=== PATIENT | male | born 1985 | race Caucasian/White ===

== ENCOUNTER 2020-01-09 21:58 | Observation (INO) | payer BC, OTHER ==
[2020-01-09 22:41] LABS: #Basophils 0.1 thou/uL (0.0-0.2); #Eosinphils 0.2 thou/uL (0.0-0.7); #Lymphocytes 2.8 thou/uL (1.20-3.40); #Monocytes 0.6 thou/uL (0.11-0.59); #Neutrophils 3.5 thou/uL (1.40-6.50); %Basophils 1.5 % (0.0-1.0); %Eosinophils 2.4 % (0.0-10.0); %Lymphocytes 38.7 % (21.0-51.0); %Monocytes 8.5 % (0.0-10.0); %Neutrophils 48.9 % (42.0-75.0); Mean Corpuscular HGB CONC 34.6 g/dL (32.0-36.0); Mean Corpuscular Hemoglobin 31.2 pg (27.0-31.0); Mean Corpuscular Volume 90.1 fL (78.0-98.0); Mean Platelet Volume 8.3 fL (7.4-10.4); Platelet Count 235 thou/uL (130-400); RBC Distribution Width 11.7 % (11.5-14.5); Red Blood Cell (RBC) Count 5.13 mill/uL (4.70-6.10); White Blood Cell (WBC) Count 7.2 thou/uL (4.8-10.8)
[2020-01-09 22:45] LABS: Bilirubin Negative (Negative); Blood, Urine Negative (Negative); Clarity Clear (Clear); Glucose, Urine (Dipstick) Normal (Negative); Ketone, Urine Negative (Negative); Leukocyte Negative Leu/uL (Negative); Nitrite Negative (Negative); Protein, Urine (Dipstick) Negative (Neg-Trace); Specific Gravity, Urine 1.002 (1.002-1.036); Urobilinogen Normal mg/dL (Less than 2)
[2020-01-09 22:47] LABS: INR-International Normal Ratio 0.8; PTT 24.1 sec (22.9-36.1); Prothrombin Time 11.8 sec (12.0-14.7)
[2020-01-09] MEDS ORDERED: Crotalidae Polyvlnt Antivenin 6 GM in Sodium Chloride 0.9% 250 ML 250 ML IVPB SCH (23:00)
[2020-01-10] MEDS ORDERED: HYDROcodone/Acetaminophen 5/325 mg Tablet PO PRN (00:09)
[2020-01-10] MEDS ORDERED: Acetaminophen 325 MG TAB PO PRN (00:09)
[2020-01-10] MEDS ORDERED: Ondansetron PF 4 MG/2 ML Vial IVP PRN (00:09)
[2020-01-10] MEDS ORDERED: Morphine 2 MG/ML VIAL SLOW IVP PRN (00:09)
[2020-01-10] MEDS ORDERED: hydrALAZINE 20 MG/ML VIAL SLOW IVP PRN (00:09)
--- NOTE | 2020-01-10 00:13 | PDOC.HHP ---
Hospitalist HPI - History of Present Illness Snake bite History of Present Illness: Patient is a 34 year old male with no PMH who presents to ED for snake bite on hand between 8 and 9 pm tonight, patient was sitting in chair and unprovoked was bitten on L middle finger proximal digit, the whole hand is swollen and cannot make a fist, denies bleeding or pain outside of the hand, it is swollen to the wrist, patient currently receiving crofab, coags normal so far fibrinogen pending. patient admitted for observation and treatment. Hospitalist ROS - Review of Systems Constitutional: denies: fever, chills, sweats, weakness, malaise, other Eyes: denies: pain, vision change, conjunctivae inflammation, eyelid inflamm ation, redness, other ENT: denies: ear pain, ear discharge, nose pain, nose discharge, nose congestion, mouth pain, mouth swelling, throat pain, throat swelling, other Respiratory: denies: cough, dry, shortness of breath, hemoptysis, SOB with excertion, pleuritic pain, sputum, wheezing, other Cardiovascular: denies: chest pain, palpitations, orthopnea, paroxysmal noc. dyspnea, edema, light headedness, other Gastrointestinal: denies: nausea, vomiting, abdominal pain, diarrhea, constipation, melena, hematochezia, other Genitourinary: denies: dysuria, frequency, incontinence, hematuria, retention, other Musculoskeletal: reports: hand pain. denies: neck pain, shoulder pain, arm pain, back pain, leg pain, foot pain, other Skin: denies: rash, lesions, neetu, bruising, other Neurological: denies: weakness, numbness, incoordination, change in speech, confusion, seizures, other All other systems reviewed; all pertinent +/- noted in HPI/Subj - Medication Medications: none Hospitalist History - Past Medical History Other Medical History: no significant pmh - Past Surgical History Past Surgical History: reports: no pertinent history - Family History Family History: reports: no pertinent history - Social History Smoking Status: Never smoker Alcohol: reports: Rare Drugs: reports: none - Exam General Appearance: NAD, awake alert Eye: PERRL, anicteric sclera ENT: normocephalic atraumatic, no oropharyngeal lesions, moist mucosa Neck: supple, symmetric, no JVD, no thyromegaly, no lymphadenopathy, no carotid bruit Heart: RRR, no murmur, no gallops, no rubs, normal peripheral pulses Respiratory: CTAB, no wheezes, no rales, no ronchi, normal chest expansion, no tachypnea, normal percussion Gastrointestinal: soft, non-tender, non-distended, normal bowel sounds, no palpable masses, no hepatomegaly, no splenomegaly, no bruit Extremities: no cyanosis, no clubbing, no edema Extremities - other findings: small puncture wound L 3rd finger MCP, edema whole L hand marked Skin: normal turgor, no lesions, no rashes Neurological: cranial nerve grossly intact, normal sensation to touch, no weakness, no focal deficits, no new deficit Musculoskeletal: normal tone, normal strength, no muscle wasting Psychiatric: normal affect, normal behavior, A&O x 3 Hospitalist Results - Labs Result Diagrams: 01/09/20 22: Lab results: WBC 7.2 thou/uL (4.8-10.8) 01/09/20 22:29 Hgb 16.0 g/dL (14.0-18.0) 01/09/20 22:29 Hct 46.3 % (42.0-52.0) 01/09/20 22: MCV 90.1 fL (78.0-98.0) 01/09/20 22:29 Plt Count 235 thou/uL (130-400) 01/09/20 22:29 Neutrophils % 48.9 % (42.0-75.0) 01/09/20 22: Creatine Kinase 176 U/L (30-200) 01/09/20 22:29 Urine Ketones Negative mg/dL (Negative) 01/09/20 22:29 Urine Blood Negative (Negative) 01/09/20 22: Urine Nitrite Negative (Negative) 01/09/20 22:29 Ur Leukocyte Esterase Negative Yue/uL (Negative) 01/09/20 22:29 Additional comment: VITAL SIGNS SunJan 09, 2020 23:58 [facility] [place] BP: 123/83 Pulse: 65 Resp: 21 Temp: 98.7 (Oral) Pain: 5 O2 sat: 98 on (Room Air) Time: 01/09/2020 23:58. labs, ed documentation reviewed Hospitalist H&P A/P - Plan Plan: Patient is a 34 year old male with no PMH who presents to ED for snake bite on hand between 8 and 9 pm tonight. # copperhead bite - patient confirmed was a copperhead, minor copperhead bite but given sensitive location on hand will need observation and hand surgery evaluation - admit to floor for obs - repeat cbc, cmp, coags in AM - consult orthopedic/hand surgery - recieved one unit crofab so far dvt ppx - not indicated, concern for pending coagulopathy and patient walking just fine
[2020-01-10] MEDS ORDERED: Electrolyte Replacement Protoc 1 EACH EACH FS PRN (00:15)
[2020-01-10 01:12] LABS: Platelet Count 248 thou/uL (130-400)
[2020-01-10 01:22] LABS: INR-International Normal Ratio 0.9; PTT 24.3 sec (22.9-36.1); Prothrombin Time 12.7 sec (12.0-14.7)
[2020-01-10 04:38] LABS: INR-International Normal Ratio 0.9; PTT 23.5 sec (22.9-36.1); Prothrombin Time 12.9 sec (12.0-14.7)
[2020-01-10 05:37] LABS: ALT (SGPT) 21 U/L (8-55); AST (SGOT) 16 U/L (5-34); Albumin 4.3 g/dL (3.5-5.0); Alkaline Phosphatase 47 U/L (40-110); Anion Gap 15 mmol/L (10-20); BUN (Urea Nitrogen) 10 mg/dL (8.9-20.6); Bilirubin, Total 0.4 mg/dL (0.2-1.2); Calc. Creatinine Clearance 0 mL/min (70-130); Calcium 8.9 mg/dL (7.8-10.44); Carbon Dioxide 21 mmol/L (22-29); Chloride 111 mmol/L (98-107); Estimated GFR-MDRD Greater than 90; Globulin 2.2 g/dL (2.4-3.5); Glucose 76 mg/dL (70-105); Potassium 4.4 mmol/L (3.5-5.1); Protein, Total 6.5 g/dL (6.0-8.3); Sodium 143 mmol/L (136-145)
[2020-01-10 06:29] VITALS: BMI 28.3
[2020-01-10] MEDS ORDERED: Crotalidae Polyvlnt Antivenin 2 GM in Sodium Chloride 0.9% 250 ML 250 ML IVPB SCH (06:30)
[2020-01-10] MEDS: Crotalidae Polyvlnt Antivenin 2 GM in Sodium Chloride 0.9% 250 ML 250 ML IVPB SCH ×2 (07:09→11:58)
[2020-01-10] MEDS ORDERED: cefTRIAXone\\ROCEPHIN 1 GM in Sodium Chloride 0.9% 100 ML IVPB SCH (12:00)
--- NOTE | 2020-01-10 12:01 | CON ---
DATE OF CONSULTATION: 01/10/2020 HISTORY OF PRESENT ILLNESS: Mr. Howard 34-year-old male who was bitten by a copperhead on the volar radial aspect of the base of the left middle finger last night. The patient developed swelling in the hand and into the forearm. He had difficult time making a fist last night. The patient states that he is feeling better. He has no neurologic complaints on the left hand. He has received CroFab and is doing well. PHYSICAL EXAMINATION: The patient has a small puncture bite on the volar radial aspect of the base of the left middle finger. The entire hand has swelling, but the patient is able to flex and extend all of his digits well. The hand is neurovascularly intact. There is no sign of any type of compartment syndrome in the finger or hand. PLAN: The patient is responding very well with CroFab. No surgical intervention is needed. I will be happy to see the patient back if he develops any further problems. Job ID: [id number]
[2020-01-10 13:02] LABS: Hemoglobin 15.2 g/dL (14.0-18.0); Mean Corpuscular HGB CONC 34.9 g/dL (32.0-36.0); Mean Corpuscular Hemoglobin 31.2 pg (27.0-31.0); Mean Corpuscular Volume 89.4 fL (78.0-98.0); Mean Platelet Volume 8.7 fL (7.4-10.4); Platelet Count 222 thou/uL (130-400); RBC Distribution Width 11.9 % (11.5-14.5); Red Blood Cell (RBC) Count 4.85 mill/uL (4.70-6.10); White Blood Cell (WBC) Count 6.1 thou/uL (4.8-10.8)
[2020-01-10 13:11] LABS: Prothrombin Time 13.4 sec (12.0-14.7)
[2020-01-10] MEDS ORDERED: metroNIDAZOLE 500 MG in Premix Bag 1 BAG IVPB SCH (14:00)
[2020-01-10 15:26] LABS: SARS-CoV-2 MS2 Positive; SARS-CoV-2 N Gene Negative; SARS-CoV-2 S Gene Negative; SARS-CoV-2 by NAA Not Detected (NotDetected); SARS-CoV-2 orf1ab Negative
[2020-01-10 16:02] VITALS: BP 125/81; TEMP 97.5
--- NOTE | 2020-01-10 20:11 | DIS ---
DATE OF ADMISSION: 01/10/2020 DATE OF DISCHARGE: 01/10/2020 DISCHARGE DIAGNOSIS: Cellulitis secondary to snake bite. CONSULTATIONS: Orthopedic with Dr. Kendall Bolton. BRIEF HISTORY OF PRESENT ILLNESS: This is a 34-year-old male with no past medical history, who presented to the emergency room after a copperhead snake bite. The patient states he was sitting outside his house, and his dog was barking. He stuck his hand in the grass, thinking there were leaves and a snake bit him on the left middle finger in the proximal digit. The patient's hand was extremely swollen and he is unable to make a fist. He presented to the emergency room and received CroFab and was admitted for observation. HOSPITAL COURSE: Copperhead snake bite: The patient received a loading dose of 6 mg of CroFab on 01/08 and received another 2 mg dose at 6 a.m. He had monitoring of fibrinogen, platelets, and PT and INR levels, which were normal and stable. Due to persistent severe swelling up to his elbow, orthopedics was consulted and recommended no drainage. [facility] was contacted and stated that no further doses of CroFab need to be given. Due to extensive swelling, however, he did get one dose of IV ceftriaxone and Flagyl while in the hospital. 2 hours later, the patient had significant improvement in his swelling and was able to make a fist. He denied any pain except upon palpation. He was discharged with Augmentin to take for 5 days. He was advised to follow up with his PCP in a week. He was advised to monitor for any signs of serum sickness and to keep his elbow elevated. Patient did receive tetanus toxoid vaccine while in the hospital. His last shot was 5 years ago, and he was not sure if it was one dose or three doses. DISCHARGE PHYSICAL EXAMINATION: VITAL SIGNS: Temperature 97.5, heart rate 52, respiratory rate 16, O2 saturation 100% on room air, and blood pressure 125/81. GENERAL: The patient is alert, awake, and oriented x3. CVS: Regular rate and rhythm with no murmurs, rubs, or gallops. LUNGS: Clear to auscultation bilaterally. ABDOMEN: Positive bowel sounds, soft, nontender, nondistended. Left upper Extremity: the patient has some swelling of the left hand with tenderness to palpation of the hand. He does have calluses in the MCP joints of his fingers. He has mild tenderness to palpation of the wrist. There is mild erythema on the left elbow, but I did not feel the consistency of an abscess. There is mild warmth on the hand, but no significant warmth or tenderness on the arm. Swelling in the arm is about 1+. 2+ radial pulses. No edema in legs or right arm. PERTINENT LABORATORY DATA: CBC 01/08: Normal with platelet count of 235. CBC 01/09: Normal with platelet count of 222. PTT 01/08: 11.8, which improved to 13.4. INR 0.8: which improved to 1.0. PTT 24.1: which was stable. Fibrinogen 01/09: 378 BMP 01/09: Some mild metabolic acidosis with bicarb 21, chloride 111, sodium 143, potassium 4.4, creatinine 0.83. LFTs: Normal. UA 01/08: Negative. COVID PCR 01/09: Negative. DISCHARGE MEDS: 1. Augmentin 875 mg-125 mg bid x 5 days DISCHARGE INSTRUCTIONS: The patient to follow up with his PCP in a week. Take Augmentin for 5 days. He should report to the hospital if he has easy bruising, bleeding, fever, pus, severe pain, numbness, inability to move his arm, or displays any signs of serum sickness. Job ID: [id number] [facility]
[2020-01-10] MEDS ORDERED: Enoxaparin Sodium 40 MG/0.4 ML SYRINGE SC SCH (21:00)
[2020-01-11] MEDS ORDERED: Adacel (T-DAP) 0.5 ML SYRINGE IM ONE (11:40)
[2020-01-11] MEDS ORDERED: cefTRIAXone\\ROCEPHIN 1 GM in Sodium Chloride 0.9% 100 ML IVPB SCH (12:00)
== END 2020-01-10 16:35 | disposition home or self-care (01) ==
LOC: ERS 21:58 → 2NO 01-10 00:34
PROVIDERS: ADMIT Internal Medicine; ATTEND Internal Medicine
DX: T63.061A Toxic effect of venom of other North and South American snake, accidental (unintentional), initial encounter (principal); Z20.828 Contact with and (suspected) exposure to other viral communicable diseases
CPT/HCPCS: 36415; 80053; 81003; 82550; 85025; 85027; 85049; 85384; 85610; 85730; 86850; 86900; 86901; 87635; 90715; 96365; 96374; 96375; 96376; G0378; J0696; J0840; J2270; J3490; J7050; U0003